=== PATIENT | male | born 2000 | race Caucasian/White ===

== ENCOUNTER 2024-04-10 04:05 | Day surgery (SDC) | payer OTHER ==
[~2024-04-10] VITALS: Ht 177.8 cm; Wt 71.0 kg
[2024-04-10] VITALS (226 sets, daily range): BP systolic 83–137; BP diastolic 36–105
[2024-04-10] MEDS ORDERED: cloNIDine HCL 0.1 MG/TAB PO PRN (07:30)
[2024-04-10] MEDS ORDERED: ALBUTEROL SULFATE 2.5 MG VIAL IN PRN (07:30)
[2024-04-10] MEDS ORDERED: CYANOCOBALAMIN 500 MCG/TAB ( B12) PO PRN (07:30)
[2024-04-10] MEDS ORDERED: diazePAM 5 MG/TAB PO PRN ×2 (07:30→08:30)
[2024-04-10] MEDS ORDERED: SCOPOLAMINE 1.5 MG DIS TD PRN (07:30)
[2024-04-10] MEDS ORDERED: FAMOTIDINE 20 MG/TAB PO PRN (07:30)
[2024-04-10] MEDS ORDERED: LACTATED RINGER'S 1,000 ML IV PRN ×3 (07:30→19:00)
[2024-04-10] MEDS ORDERED: PANTOPRAZOLE SODIUM Sesquihydr 40 MG/TAB PO PRN (07:30)
[2024-04-10] MEDS ORDERED: ASCORBIC ACID 4,000 MG in SODIUM CHLORIDE 0.9% 1,000 ML IV SCH (08:00)
[2024-04-10 08:17] LABS: BASO% 0.6 % (0-3); EOS% 7.7 % (0-8); HEMATOCRIT 42.4 % (39.0-50.0); IMMATURE GRANULOCYTES 0.3 % (0.0-5.0); LYMPH% 24.3 % (15-41); MEAN CELL VOLUME 86.7 fL CALC (80.0-100.0); MEAN CORPUSCULAR HGB 28.6 pG CALC (26.0-32.0); MONO% 7.2 % (2-13); NEUT# 3.8 thou/uL (1.82-7.42); NEUT% 59.9 % (42-76); RED BLOOD COUNT 4.89 mill/uL (4.70-6.10)
[2024-04-10 08:37] LABS: ALBUMIN 4.9 g/dL (3.2-5.0); BILIRUBIN, TOTAL 0.4 mg/dL (0.2-1.3); CREATININE 0.7 mg/dL (0.7-1.3); POTASSIUM 4.5 mmol/l (3.5-5.1); TOTAL PROTEIN 7.6 g/dL (6.3-8.2)
[2024-04-10] MEDS ORDERED: THIAMINE HCL 100 MG/ML 2ML VIAL IV PRN (09:00)
[2024-04-10] MEDS ORDERED: MAGNESIUM SULFATE HEPTAHYDRATE 100 ML IV PRN (09:00)
[2024-04-10] MEDS ORDERED: LIDOCAINE HCL 1% (10MG/ML) 100 MG/10 ML MDV VT PRN ×2 (09:00)
[2024-04-10] MEDS ORDERED: SUCCINYLCHOLINE CHLORIDE 20 MG/ML 10ML VIAL IV PRN (09:00)
[2024-04-10] MEDS ORDERED: DiphenhydrAMINE HCL 50 MG/ML SDV IV PRN ×2 (09:00→09:50)
[2024-04-10] MEDS ORDERED: MIDAZOLAM HCL 2 MG/2 ML VIAL IV PRN (09:00)
[2024-04-10] MEDS ORDERED: ONDANSETRON HCl 4 MG/2 ML SDV IV PRN ×3 (09:00→19:00)
[2024-04-10] MEDS ORDERED: diazePAM 5 MG/TAB VT PRN (09:00)
[2024-04-10] MEDS ORDERED: POTASSIUM CHLORIDE 20 MEQ/100 ML BAG IV PRN (09:00)
[2024-04-10] MEDS ORDERED: OCTREOTIDE ACETATE 100 MCG/VIAL SDV SC PRN (09:00)
[2024-04-10] MEDS ORDERED: cloNIDine HYDROCHLORIDE 100 MCG/ML 10 ML INJ IV PRN (09:00)
[2024-04-10] MEDS ORDERED: STERILE WATER FOR IRRIGATION 1,000 ML BTL IR PRN (09:00)
[2024-04-10] MEDS ORDERED: LIDOCAINE HCL 1% (10MG/ML) 100 MG/10 ML MDV IV PRN (09:00)
[2024-04-10] MEDS ORDERED: ROCURONIUM BROMIDE 10 MG/ML 5ML VIAL IV PRN (09:00)
[2024-04-10] MEDS ORDERED: NALTREXONE HCL 50 MG/TAB VT PRN (09:00)
[2024-04-10] MEDS ORDERED: cloNIDine HCL 0.1 MG/TAB VT PRN (09:00)
[2024-04-10] MEDS ORDERED: methylPREDNISolone SODIUM SUCC 125 MG/2 ML SDV IV PRN (09:50)
[2024-04-10] MEDS ORDERED: EPINEPHrine HCL 0.1 MG/ML 10 ML SYR IV PRN (10:05)
[2024-04-10] MEDS ORDERED: PROPOFOL 10 MG/ML 100ML VIAL IV PRN ×2 (10:05→10:15)
[2024-04-10] MEDS ORDERED: PROPOFOL 100 ML IV PRN (10:15)
[2024-04-10] MEDS ORDERED: NALTREXONE50 MG PO (16:47)
[2024-04-10] MEDS ORDERED: KLONOPIN2 MG PO (16:47)
[2024-04-10] MEDS ORDERED: CLONIDINE0.1 MG PO (16:47)
[2024-04-10] MEDS ORDERED: KETOROLAC TROMETHAMINE 30 MG/ML SDV IV PRN (19:00)
[2024-04-10] MEDS ORDERED: PROMETHAZINE HCL 25 MG in SODIUM CHLORIDE 0.9% 50 ML IV PRN (19:00)
[2024-04-10] MEDS ORDERED: LORazepam 2 MG/ML IV PRN ×2 (19:00)
[2024-04-10] MEDS ORDERED: PROMETHAZINE HCL 12.5 MG in SODIUM CHLORIDE 0.9% 50 ML IV PRN (19:00)
[2024-04-10] MEDS ORDERED: ACETAMINOPHEN 1,000 MG/100 ML VIAL IV PRN (19:00)
[2024-04-10] MEDS ORDERED: HALOPERIDOL LACTATE 5 MG/ML SDV IV PRN (19:00)
[2024-04-10] MEDS ORDERED: ACETAMINOPHEN 500 MG TAB PO PRN (19:00)
[2024-04-10] MEDS ORDERED: PATIENT' OWN MED CONTROLLED 1 EA DOSE IV PRN (21:00)
[2024-04-10] MEDS ORDERED: clonazePAM 1 MG/TAB PO PRN (23:00)
[2024-04-10] MEDS ORDERED: cloNIDine HCL 0.1 MG/TAB PO SCH (23:00)
[2024-04-11 03:46] VITALS: BP 119/66
[2024-04-11] MEDS ORDERED: cloNIDine HCL 0.1 MG/TAB PO PRN (04:00)
[2024-04-11] MEDS ORDERED: NALTREXONE HCL 50 MG/TAB PO SCH (04:00)
[2024-04-11] MEDS ORDERED: clonazePAM 1 MG/TAB PO PRN ×2 (04:00→08:00)
[2024-04-11 06:02] LABS: ALBUMIN 4.1 g/dL (3.2-5.0); BILIRUBIN, TOTAL 0.5 mg/dL (0.2-1.3); CREATININE 0.7 mg/dL (0.7-1.3); MAGNESIUM 1.9 mg/dL (1.6-2.3); POTASSIUM 3.7 mmol/l (3.5-5.1); TOTAL PROTEIN 6.5 g/dL (6.3-8.2)
[2024-04-11 06:04] LABS: BASO% 0.1 % (0-3); IMMATURE GRANULOCYTES 0.3 % (0.0-5.0); LYMPH% 8.1 % (15-41); MEAN CELL VOLUME 86.8 fL CALC (80.0-100.0); MEAN CORPUSCULAR HGB 28.7 pG CALC (26.0-32.0); MONO% 4.5 % (2-13); NEUT# 10.16 thou/uL (1.82-7.42); RED BLOOD COUNT 3.87 mill/uL (4.70-6.10)
[2024-04-11 06:05] LABS: HEMATOCRIT 33.6 % (39.0-50.0); HEMOGLOBIN 11.1 g/dl (14.0-18.0)
[2024-04-11] MEDS ORDERED: ACETAMINOPHEN 325 MG/TAB PO SCH (08:00)
[2024-04-11] MEDS ORDERED: PANTOPRAZOLE SODIUM Sesquihydr 40 MG/TAB PO SCH (08:00)
[2024-04-11] MEDS ORDERED: cloNIDine HCL 0.1 MG/TAB PO SCH (08:00)
[2024-04-11 08:08] VITALS: BP 117/66
[2024-04-11] MEDS ORDERED: ACETAMINOPHEN 500 MG TAB PO PRN (09:00)
[2024-04-11] MEDS ORDERED: SODIUM CHLORIDE 0.9% IV SCH (09:00)
[2024-04-11] MEDS ORDERED: MAGNESIUM OXIDE 400 MG/TAB PO PRN (09:00)
[2024-04-11] MEDS ORDERED: Cholecalciferol 2,000 UNIT/TAB PO PRN (09:00)
[2024-04-11] MEDS ORDERED: MAGNESIUM SULFATE HEPTAHYDRATE IV SCH (09:00)
[2024-04-11] MEDS ORDERED: POTASSIUM CHLORIDE 20 MEQ/TAB PO SCH (09:00)
== END 2024-04-11 13:57 | disposition home or self-care (01) | DRG 897 ==
LOC: ANR 04:05 → MS2 04:05 → ANR 08:00 → MS2 04-11 07:38 → ANR 04-11 13:57
PROVIDERS: ATTEND Anesthesiology
DX: F11.20 Opioid dependence, uncomplicated (principal)
CPT/HCPCS: J1100; J1200; J1630; J2060; J2354; J2405; J2704; J3475; J3480; J3490